=== PATIENT | male | born 1935 | race Caucasian/White ===

== ENCOUNTER 2021-05-12 17:14 | Observation (INO) ==
[2021-05-12] MEDS ORDERED: Melatonin 3 MG TABLET PO PRN (20:36)
[2021-05-12] MEDS ORDERED: Ondansetron 4 MG/2 ML VIAL IVP PRN (20:36)
[2021-05-12] MEDS ORDERED: Naloxone 0.4 MG/ML INJ IVP PRN (20:36)
[2021-05-12] MEDS ORDERED: Gabapentin 300 MG CAPSULE PO SCH (22:00)
[2021-05-12] MEDS: 0.9 % Sodium Chloride 1,000 ML IVC SCH (22:04)
[2021-05-13] MEDS ORDERED: Dextrose 4 GM Chewable Tablets PO PRN ×4 (00:27→11:30)
[2021-05-13] MEDS ORDERED: *HR* Dextrose 50 % in Water (Syg) 50 ML SYRINGE IVP PRN ×2 (00:27→11:30)
[2021-05-13] MEDS ORDERED: D5% in Water 1,000 ML IVC PRN ×2 (00:27→11:30)
[2021-05-13] MEDS: Insulin LISPRO 300 UNITS/3 ML VIAL SUBQ SCH ×5 (00:48→23:57)
[2021-05-13 01:02] LABS: Bilirubin,Urine Negative (Negative); Blood,Urine Large (Negative); Clarity,Urine Turbid (Clear); Color,Urine Light-Yellow (Yellow); Glucose,Urine (UA) 500 mg/dL (Normal); Ketones,Urine Negative (Negative); Leukocyte Esterase,Urine Negative (Negative); Mucus,Urine Few per lpf (None-Few); Nitrite,Urine Negative (Negative); PH,Urine 5.5 pH Units (5.0-8.0); Protein,Urine 50 mg/dL (Neg-Trace); RBC,Urine TNTC per hpf (0-3); Specific Gravity,Urine > 1.030 (1.010-1.025); Squamous Epithelial Cell,Urine Few per hpf (None-Few); Uric Acid Crystals,Urine Present per hpf; Urobilinogen,Urine Normal (Normal)
[2021-05-13 07:00] LABS: Hematocrit 33.1 % (37.5-50.1); Hemoglobin 10.9 g/dL (12.9-16.9); Mean Corpuscular HGB Conc 32.9 g/dL (31.6-35.5); Mean Corpuscular Hemoglobin 31.9 pg (28.0-33.3); Mean Corpuscular Volume 96.8 fL (83.0-100.0); Platelet Count 133 K/mcL (140-400); Red Blood Count 3.42 M/mcL (4.19-5.50); Red Cell Distribution Width 12.5 % (11.5-14.5); White Blood Count 3.8 K/mcL (4.3-11.1)
[2021-05-13 07:07] LABS: INR 1.2
[2021-05-13 07:08] LABS: BUN/Creatinine Ratio 22 (6-26); Blood Urea Nitrogen 25 mg/dL (8-23); Calcium 8.4 mg/dL (8.6-10.3); Carbon Dioxide 26 mEq/L (23-29); Chloride 111 mEq/L (98-107); Glucose 111 mg/dL (70-105); Osmolality,Calculated 295 (280-300); Potassium 4.4 mEq/L (3.5-5.1); Sodium 140 mEq/L (136-145); eGFR For African Americans > 60 (> 60); eGFR For Non-African Americans > 60 (> 60)
[2021-05-13 07:10] LABS: Activated Partial Thrombo Time 62.1 Seconds (26.0-36.0)
[2021-05-13] MEDS: 0.9 % Sodium Chloride 1,000 ML IVC SCH ×3 (07:51→21:48)
[2021-05-13] MEDS ORDERED: Famotidine 20 MG/2 ML VIAL IVP ONE (07:59)
[2021-05-13] MEDS ORDERED: Acetaminophen IV 1,000 MG/100 ML BAG IVPB ONE (07:59)
[2021-05-13] MEDS ORDERED: carvediloL 6.25 MG TABLET PO SCH (08:00)
[2021-05-13] MEDS ORDERED: *HR* Metformin 500 MG TABLET PO SCH (08:00)
[2021-05-13] MEDS ORDERED: *HR* Ticagrelor 90 MG TABLET PO SCH (09:00)
[2021-05-13] MEDS ORDERED: *HR* FentaNYL (PF) 100 MCG/2 ML VIAL ONE (09:43)
[2021-05-13] MEDS ORDERED: *HR* Propofol 200 MG/20 ML VIAL IVP ONE (09:43)
[2021-05-13] MEDS ORDERED: Lidocaine -MPF 2% 5 ML VIAL ONE (09:48)
[2021-05-13] MEDS ORDERED: Ondansetron 4 MG/2 ML VIAL ONE (09:48)
[2021-05-13] MEDS ORDERED: *HR* Succinylcholine 200 MG/10 ML VIAL IVP ONE (09:48)
[2021-05-13] MEDS ORDERED: Isovue-300 50ML VIAL ONE (09:53)
[2021-05-13] MEDS ORDERED: ceFAZolin 2,000 MG in Water for inj. (sterile) 20 ML IVP ONE (10:05)
[2021-05-13] MEDS ORDERED: EPHEDrine 50 MG/ML VIAL ONE (10:15)
[2021-05-13] MEDS ORDERED: *HR* Vasopressin 20 UNIT/ML VIAL ONE (10:34)
[2021-05-13] MEDS ORDERED: Melatonin 3 MG TABLET PO PRN (11:30)
[2021-05-13] MEDS ORDERED: *HR* HYDROcodone/Acet 5/325 mg TABLET PO PRN (11:30)
[2021-05-13] MEDS ORDERED: Ondansetron 4 MG/2 ML VIAL IVP PRN (11:30)
[2021-05-13] MEDS ORDERED: Naloxone 0.4 MG/ML INJ IVP PRN (11:30)
[2021-05-13] MEDS: carvediloL 6.25 MG TABLET PO SCH (17:31)
[2021-05-13] MEDS ORDERED: Gabapentin 300 MG CAPSULE PO SCH (21:00)
[2021-05-13] MEDS: *HR* Ticagrelor 90 MG TABLET PO SCH (21:53)
[2021-05-14] MEDS: Insulin LISPRO 300 UNITS/3 ML VIAL SUBQ SCH (06:23)
[2021-05-14] MEDS: carvediloL 6.25 MG TABLET PO SCH (08:51)
[2021-05-14] MEDS: *HR* Ticagrelor 90 MG TABLET PO SCH (08:51)
[2021-05-14] MEDS: 0.9 % Sodium Chloride 1,000 ML IVC SCH (08:52)
[2021-05-14 11:12] VITALS: BP 121/74; PULSE 76; TEMP 97.4; O2SAT 90
== END 2021-05-14 13:15 | disposition home or self-care (01) ==
LOC: 3ANU
PROVIDERS: ADMIT Internal Medicine; ATTEND Internal Medicine